=== PATIENT | male | born 2000 | race Caucasian/White ===

== ENCOUNTER 2022-05-11 21:13 | Observation (INO) | payer BC, OTHER ==
[2022-05-11] MEDS ORDERED: AMPICILLIN NA/SULBACTAM NA 3 GM in SODIUM CHLORIDE 100 ML IVPB ONE ×2 (22:34→23:15)
[2022-05-11 23:02] LABS: BASO % 0.2 % (0-2.0); HEMATOCRIT 45.2 % (35.4-49); HEMOGLOBIN 14.4 GM/dL (11.7-16.9); LYMPH % 9.7 % (8-40); MCH 27.4 pg (25.7-33.7); MEAN CELL VOLUME 85.7 fl (80-96); MEAN PLT VOLUME 7.8 fl (7.5-11.1); MONO % 13.7 % (3.8-10.2); NEUT % 75.4 % (42.8-82.8); PLATELET COUNT 374 10^3/uL (134-434); RBC 5.27 M/mm3 (4.00-5.60); RDW 14.5 % (11.9-15.9); WHITE BLOOD COUNT 19.2 K/mm3 (4.0-10.0)
[2022-05-11 23:36] LABS: ALBUMIN 4.3 g/dl (3.4-5.0); BLOOD UREA NITROGEN 10.5 mg/dL (7-18); CALCIUM 9.7 mg/dL (8.5-10.1)
[2022-05-11 23:39] LABS: CREATININE 0.9 mg/dL (0.55-1.3)
[2022-05-11 23:42] LABS: BILIRUBIN,TOTAL 0.4 mg/dL (0.2-1); TOT PROT 8.2 g/dl (6.4-8.2)
[2022-05-12] MEDS ORDERED: ACETAMINOPHEN INJECTION 100 ML IVPB ONE (00:16)
[2022-05-12] MEDS ORDERED: ACETAMINOPHEN 1000 MG/100 ML BAG IVPB ONE (00:18)
[2022-05-12] MEDS ORDERED: MELATONIN 5 MG TABLETS PO PRN (00:45)
[2022-05-12] MEDS ORDERED: DIPHTH,PERTUSS(ACELL),TET 0.5 ML DISP.SYRIN IM ONE ×2 (01:40→02:37)
[2022-05-12] MEDS ORDERED: ALBUTEROL SO4 HFA INHALER IH PRN (01:49)
[2022-05-12] MEDS ORDERED: LACTATED RINGERS SOLUTION 1,000 ML/1,000 ML INFUS.BAG IV SCH (02:30)
[2022-05-12] MEDS ORDERED: MELATONIN 5 MG TABLETS ONE (02:40)
[2022-05-12] MEDS ORDERED: AMPICILLIN NA/SULBACTAM NA 3 GM in SODIUM CHLORIDE 100 ML IVPB SCH ×3 (03:00→09:00)
[2022-05-12 04:52] LABS: ERYTHROCYTE SEDIMENTATION RATE 16 mm/hr (0-10)
[2022-05-12] MEDS ORDERED: ACETAMINOPHEN 325 MG TABLET (FP) ONE ×2 (05:37→08:00)
[2022-05-12 06:40] LABS: HEMATOCRIT 43.3 % (35.4-49); HEMOGLOBIN 14.1 GM/dL (11.7-16.9); MCH 28.8 pg (25.7-33.7); MCHC 32.6 g/dl (32.0-35.9); MEAN CELL VOLUME 88.3 fl (80-96); MEAN PLT VOLUME 8.5 fl (7.5-11.1); PLATELET COUNT 327 10^3/uL (134-434); WHITE BLOOD COUNT 20.4 K/mm3 (4.0-10.0)
[2022-05-12 06:56] LABS: CALCIUM 9.4 mg/dL (8.5-10.1)
[2022-05-12 06:57] LABS: ALBUMIN 3.8 g/dl (3.4-5.0); BLOOD UREA NITROGEN 9.8 mg/dL (7-18)
[2022-05-12 07:01] LABS: BILIRUBIN,TOTAL 0.5 mg/dL (0.2-1); CREATININE 0.7 mg/dL (0.55-1.3); PHOSPHOROUS 4.3 mg/dL (2.5-4.9); TOT PROT 7.2 g/dl (6.4-8.2)
[2022-05-12] MEDS: ACETAMINOPHEN 325 MG TABLET (FP) PO PRN ×2 (08:06→18:18)
[2022-05-12 10:40] LABS: ANISOCYTOSIS 0; HELMET CELLS 0; HOWELL-JOLLY BODIES 0; MACROCYTOSIS 0; OVALOCYTE 0; ROULEAU 0; SICKELED CELLS 0; TARGET CELLS 0; TEAR DROP CELLS 0; TOXIC GRANULATION 0
[2022-05-12] MEDS: BUDESONIDE/FORMETEROL FUMARATE 160/4.5 mcg INHALER IH SCH ×2 (11:10→23:33)
[2022-05-12] MEDS ORDERED: traMADol HCL 50 MG TABLET ONE (13:55)
[2022-05-12] MEDS: traMADol HCL 50 MG TABLET PO PRN (13:58)
[2022-05-12] MEDS: PIPERACILLIN/TAZOB 4.5 GM 4.5 GM in DEXTROSE 5%-WATER 100 ML IVPB SCH (18:12)
[2022-05-13] MEDS: PIPERACILLIN/TAZOB 4.5 GM 4.5 GM in DEXTROSE 5%-WATER 100 ML IVPB SCH ×3 (02:02→17:19)
[2022-05-13] MEDS: traMADol HCL 50 MG TABLET PO PRN ×2 (02:45→23:28)
[2022-05-13 07:35] LABS: ALBUMIN 3.4 g/dl (3.4-5.0); BLOOD UREA NITROGEN 7.1 mg/dL (7-18); CALCIUM 9.3 mg/dL (8.5-10.1)
[2022-05-13 07:38] LABS: CREATININE 0.7 mg/dL (0.55-1.3)
[2022-05-13 07:40] LABS: BILIRUBIN,TOTAL 0.5 mg/dL (0.2-1)
[2022-05-13 07:47] LABS: BASO % 0.2 % (0-2.0); EOS % 1.1 % (0-4.5); HEMATOCRIT 39.7 % (35.4-49); HEMOGLOBIN 12.9 GM/dL (11.7-16.9); LYMPH % 11.2 % (8-40); MCH 28.4 pg (25.7-33.7); MCHC 32.5 g/dl (32.0-35.9); MEAN CELL VOLUME 87.3 fl (80-96); MEAN PLT VOLUME 8.4 fl (7.5-11.1); MONO % 12.8 % (3.8-10.2); NEUT % 74.7 % (42.8-82.8); PLATELET COUNT 312 10^3/uL (134-434); RBC 4.55 M/mm3 (4.00-5.60); WHITE BLOOD COUNT 16.2 K/mm3 (4.0-10.0)
[2022-05-13] MEDS: BUDESONIDE/FORMETEROL FUMARATE 160/4.5 mcg INHALER IH SCH ×2 (10:04→21:37)
[2022-05-13] MEDS: ACETAMINOPHEN 325 MG TABLET (FP) PO PRN (10:06)
[2022-05-13 10:54] VITALS: RESP 18
[2022-05-14] MEDS: PIPERACILLIN/TAZOB 4.5 GM 4.5 GM in DEXTROSE 5%-WATER 100 ML IVPB SCH ×2 (02:35→09:23)
[2022-05-14 08:14] LABS: BASO % 0.5 % (0-2.0); EOS % 1.5 % (0-4.5); HEMATOCRIT 40.2 % (35.4-49); HEMOGLOBIN 13.3 GM/dL (11.7-16.9); LYMPH % 20.9 % (8-40); MCH 28.1 pg (25.7-33.7); MCHC 33.2 g/dl (32.0-35.9); MEAN CELL VOLUME 84.7 fl (80-96); MONO % 14.4 % (3.8-10.2); NEUT % 62.7 % (42.8-82.8); PLATELET COUNT 319 10^3/uL (134-434); RBC 4.74 M/mm3 (4.00-5.60); RDW 13.9 % (11.9-15.9)
[2022-05-14 08:38] LABS: BLOOD UREA NITROGEN 9.5 mg/dL (7-18)
[2022-05-14 08:40] LABS: BILIRUBIN,TOTAL 0.5 mg/dL (0.2-1); TOT PROT 7.3 g/dl (6.4-8.2)
[2022-05-14 08:41] LABS: ALBUMIN 3.5 g/dl (3.4-5.0); CALCIUM 9.3 mg/dL (8.5-10.1); CREATININE 0.8 mg/dL (0.55-1.3); MAGNESIUM 2.2 mg/dL (1.8-2.4); PHOSPHOROUS 4.7 mg/dL (2.5-4.9)
[2022-05-14] MEDS: BUDESONIDE/FORMETEROL FUMARATE 160/4.5 mcg INHALER IH SCH (09:59)
[2022-05-14] MEDS: ACETAMINOPHEN 325 MG TABLET (FP) PO PRN (10:42)
[2022-05-14 10:52] VITALS: BMI 17.8
[2022-05-14 11:34] VITALS: BP 111/78; PULSE 72; TEMP 98.8
== END 2022-05-14 14:11 | disposition home or self-care (01) ==
LOC: JERFT 21:13 → JERBED 05-12 00:58 → J7W 05-12 14:42
PROVIDERS: ADMIT Internal Medicine; ATTEND Internal Medicine
PROC: 3E033NZ Introduction of Analgesics, Hypnotics, Sedatives into Peripheral Vein, Percutaneous Approach (ICD-10-PCS; principal; 2022-05-12)
PROC: 3E03329 Introduction of Other Anti-infective into Peripheral Vein, Percutaneous Approach (ICD-10-PCS; 2022-05-12)
PROC: 3E0234Z Introduction of Serum, Toxoid and Vaccine into Muscle, Percutaneous Approach (ICD-10-PCS; 2022-05-12)
DX: S61.451A Open bite of right hand, initial encounter (principal); Y04.1XXA Assault by human bite, initial encounter; Y93.89 Activity, other specified; Y92.89 Other specified places as the place of occurrence of the external cause; J45.909 Unspecified asthma, uncomplicated; F17.210 Nicotine dependence, cigarettes, uncomplicated; L03.113 Cellulitis of right upper limb
CPT/HCPCS: 36415; 71045-TC-FY; 73130-TC-RT-FY; 73221-TC-RT; 80053; 83605; 83735; 84100; 85025; 85651; 86140; 87040; 87070; 87205; 90715; 93005; 93010; 99285-25; C9803-CS; G0378; U0003; U0005